=== PATIENT | female | born 1975 | race Hispanic/Latino ===

== ENCOUNTER 2020-11-24 17:39 | Emergency (ER) | payer OTHER ==
[2020-11-24 18:36] LABS: Bilirubin Neg (Negative); Blood, Urine Negative (Negative); Clarity Clear (Clear); Glucose, Urine (Dipstick) Normal (Negative); Ketone, Urine Negative (Negative); Leukocyte 25 (Negative); Nitrite Negative (Negative); Protein, Urine (Dipstick) Negative (Neg-Trace); Urobilinogen Normal mg/dL (Less than 2)
[2020-11-24 18:39] LABS: Pregnancy Test - Urine (BHCG) Negative (Negative)
[2020-11-24 18:40] LABS: Pregu Control Background? CLEAR/WHITE (CLR/WHITE); Pregu Control Bar Appear? YES (CONTROL BAR)
[2020-11-24 18:45] LABS: #Basophils 0.1 10x3/uL (0.0-0.2); #Eosinphils 0.1 10x3/uL (0.0-0.5); #Monocytes 0.7 10x3/uL (0.0-1.1); #Neutrophils 6.2 10x3/uL (1.5-8.4); %Basophils 0.5 % (0.0-2.0); %Eosinophils 1.2 % (0.0-6.0); %Monocytes 6.3 % (0.0-10.0); %Neutrophils 59.5 % (40.0-75.0); Hemoglobin 12.9 g/dL (12.0-15.5); Mean Corpuscular HGB CONC 32.3 g/dL (32.0-36.0); Mean Corpuscular Hemoglobin 28.2 pg (27.0-33.0); Mean Corpuscular Volume 87.3 fl (81.6-98.3); Mean Platelet Volume 11.3 fl (7.4-10.4); Platelet Count 328 10x3/uL (150-450); RBC Distribution Width 14.2 % (11.5-14.5); Red Blood Cell (RBC) Count 4.58 10x6/uL (3.90-5.03); White Blood Cell (WBC) Count 10.5 10x3/uL (3.5-10.5)
[2020-11-24 18:46] LABS: RBC/HPF 0-3 HPF (0-3)
[2020-11-24 18:47] LABS: Bacteria/HPF Rare-Few HPF (None Seen)
[2020-11-24 18:49] LABS: ALT (SGPT) 32 U/L (8-55); AST (SGOT) 17 U/L (5-34); Alkaline Phosphatase 85 U/L (40-110); Anion Gap 13 mmol/L (10-20); BUN (Urea Nitrogen) 14 mg/dL (7.0-18.7); Bilirubin, Total 0.1 mg/dL (0.2-1.2); Calc. Creatinine Clearance 0 mL/min (70-130); Calcium 9.1 mg/dL (7.8-10.44); Carbon Dioxide 25 mmol/L (22-29); Chloride 105 mmol/L (98-107); Globulin 2.8 g/dL (2.4-3.5); Glucose 133 mg/dL (70-105); Potassium 3.7 mmol/L (3.5-5.1); Protein, Total 6.8 g/dL (6.0-8.3); Sodium 139 mmol/L (136-145)
== END 2020-11-24 19:39 | disposition home or self-care (01) ==
LOC: CSHERS 17:39
DX: M79.10 Myalgia, unspecified site (principal); M72.2 Plantar fascial fibromatosis
CPT/HCPCS: 36415; 80053; 81003; 81015; 81025; 84443; 85025; 99284

== ENCOUNTER 2022-11-13 08:40 | Emergency (ER) | payer OTHER ==
[2022-11-13] MEDS ORDERED: Dexamethasone 10 MG/ML VIAL ONE (10:01)
[2022-11-13] MEDS ORDERED: Ketorolac Tromethamine 30 MG/ML VIAL ONE (10:01)
[2022-11-13] MEDS ORDERED: Acetaminophen 325 MG TAB ONE (10:01)
[2022-11-13 10:15] LABS: Anion Gap 14 mmol/L (10-20); BUN (Urea Nitrogen) 9 mg/dL (7.0-18.7); Calc. Creatinine Clearance 0 mL/min (70-130); Calcium 8.3 mg/dL (7.8-10.44); Carbon Dioxide 24 mmol/L (22-29); Chloride 102 mmol/L (98-107); Estimated GFR 89; Glucose 132 mg/dL (70-105); Magnesium 2.2 mg/dL (1.6-2.6); Potassium 3.3 mmol/L (3.5-5.1); Sodium 137 mmol/L (136-145)
[2022-11-13 10:38] LABS: #Monocytes 1.1 10x3/uL (0.0-1.1); #Neutrophils 9.2 10x3/uL (1.5-8.4); %Basophils 0.3 % (0.0-2.0); %Eosinophils 0.1 % (0.0-6.0); %Lymphocytes 13.6 % (18.0-47.0); %Monocytes 9.4 % (0.0-10.0); %Neutrophils 76.3 % (40.0-75.0); Hemoglobin 13.5 g/dL (12.0-15.5); Mean Corpuscular HGB CONC 31.8 g/dL (32.0-36.0); Mean Corpuscular Hemoglobin 28.4 pg (27.0-33.0); Mean Corpuscular Volume 89.1 fl (81.6-98.3); Mean Platelet Volume 11.6 fl (7.4-10.4); Platelet Count 285 10x3/uL (150-450); RBC Distribution Width 14.5 % (11.5-14.5); Red Blood Cell (RBC) Count 4.76 10x6/uL (3.90-5.03); White Blood Cell (WBC) Count 12.1 10x3/uL (3.5-10.5)
[2022-11-13] MEDS ORDERED: Doxycycline 100 MG CAP PO SCH (12:30)
== END 2022-11-13 12:42 | disposition home or self-care (01) ==
LOC: CSHERS 08:40
DX: J18.9 Pneumonia, unspecified organism (principal)
CPT/HCPCS: 36415; 71046; 80048; 83735; 85025; 87081; 87430; 96374; 96375; J1100; J1885

== ENCOUNTER 2024-06-26 14:23 | Emergency (ER) | payer OTHER | END 2024-06-26 16:49 | disposition home or self-care (01) | LOC: CSHERS 14:23 | DX: M25.562 Pain in left knee (principal); W18.09XA Striking against other object with subsequent fall, initial encounter | CPT/HCPCS: 99283 ==